=== PATIENT | male | born 1980 | race Caucasian/White ===

== ENCOUNTER 2018-07-21 07:25 | Emergency (ER) | payer MEDICAID ==
[~2018-07-21] VITALS: Ht 175.3 cm; Wt 77.3 kg
[2018-07-21] MEDS ORDERED: BACTDSB PO (07:52)
[2018-07-21] MEDS ORDERED: CEPH500 PO (07:52)
[2018-07-21] MEDS ORDERED: LOPE2 PO (07:52)
[2018-07-21] MEDS ORDERED: ONDA4 PO (07:53)
[2018-07-21] MEDS ORDERED: IBUP-2071 PO (07:53)
[2018-07-21] MEDS ORDERED: BISMUTH SUBSALICYLATE 524 MG/30 ML SUSPENSION UDCUP PO ONE (08:15)
[2018-07-21] MEDS ORDERED: SODIUM CHLORIDE 0.9% 1,000 ML IV ONE ×2 (08:15→10:00)
[2018-07-21 08:42] LABS: APPEARANCE,URINE CLEAR (CLEAR); BILIRUBIN,URINE NEGATIVE (NEGATIVE); GLUCOSE, URINE (UA) NEGATIVE (NEGATIVE); KETONES,URINE NEGATIVE (NEGATIVE); LEUKOCYTE ESTERASE ,URINE NEGATIVE (NEGATIVE); NITRATE,URINE NEGATIVE (NEGATIVE); OCCULT BLOOD,URINE NEGATIVE (NEGATIVE); PROTEIN,URINE NEGATIVE (NEGATIVE); UROBILINOGEN,URINE 0.2 mg/dL (<=1.0)
[2018-07-21 08:47] LABS: ANION GAP 6 mmol/L (8-16); CALCIUM, TOTAL 8.9 mg/dL (8.8-10.5); CARBON DIOXIDE 26 mmol/L (22-29); CHLORIDE 103 mmol/L (98-107); CREATININE 0.84 mg/dL (0.60-1.30); GLOMERULAR FILTR. RATE CALC > 60 mL/min (>60); GLUCOSE,RANDOM 104 mg/dL (70-110); POTASSIUM 4.6 mmol/L (3.5-5.1); SODIUM SERUM 135 mmol/L (136-145); UREA NITROGEN, BLOOD 11 mg/dL (7-18)
[2018-07-21 08:51] LABS: ALANINE AMINOTRANSFERASE 24 U/L (12-78); ALBUMIN 3.4 g/dL (3.4-5.0); ALKALINE PHOSPHATASE 75 U/L (46-116); ASPARTATE AMINOTRANSFERASE 10 U/L (15-37); BILIRUBIN,TOTAL 0.3 mg/dL (0.1-1.0); LIPASE 121 U/L (73-393); TOTAL PROTEIN, SERUM 7.9 g/dL (6.4-8.2)
[2018-07-21 08:55] LABS: BASOPHILS % (AUTO) 0.2 % (0.0-2.0); EOSINOPHILS % (AUTO) 2.4 % (1.0-6.0); HEMOGLOBIN 14.6 g/dL (13.5-17.5); LYMPHOCYTES # (AUTO) 0.8 K/uL (1.0-4.8); LYMPHOCYTES % (AUTO) 14.3 % (22.0-44.0); MEAN CORPUSCULAR HEMOGLOBIN 30.2 pg (26.0-34.0); MEAN CORPUSCULAR HGB CONC 33.3 G/dL (31.0-37.0); MEAN CORPUSCULAR VOLUME 91 fL (80-100); MONOCYTES # (AUTO) 0.4 K/uL (0.1-1.0); NEUTROPHILS # (AUTO) 4.2 K/uL (1.8-7.7); NEUTROPHILS % (AUTO) 76.1 % (40.0-70.0); PLATELET COUNT (AUTO) 288 K/uL (150-450); RED BLOOD CELL COUNT(AUTO) 4.86 MIL/uL (4.50-5.90)
[2018-07-21 09:01] LABS: INFLUENZA TYPE A NEGATIVE FOR TYPE A (NEGATIVE); INFLUENZA TYPE B NEGATIVE FOR TYPE B (NEGATIVE)
[2018-07-21 09:05] LABS: AMPHET/METH SCREEN,URINE NEGATIVE (NEGATIVE); BARBITURATE SCREEN, URINE NEGATIVE (NEGATIVE); BENZODIAZEPINES SCREEN,URINE NEGATIVE (NEGATIVE); CANNABINOID SCREEN,URINE NEGATIVE (NEGATIVE); COCAINE SCREEN,URINE NEGATIVE (NEGATIVE); METHADONE SCREEN, URINE NEGATIVE (NEGATIVE); OPIATE SCREEN,URINE NEGATIVE (NEGATIVE); PHENCYCLIDINE SCREEN,URINE NEGATIVE (NEGATIVE)
[2018-07-21 13:03] VITALS: BP 101/65
== END 2018-07-21 13:10 | disposition home or self-care (01) ==
LOC: EMS 07:29
DX: R10.84 Generalized abdominal pain (principal); R11.2 Nausea with vomiting, unspecified; R19.7 Diarrhea, unspecified; F11.10 Opioid abuse, uncomplicated; F15.10 Other stimulant abuse, uncomplicated; F17.210 Nicotine dependence, cigarettes, uncomplicated; Z79.899 Other long term (current) drug therapy
CPT/HCPCS: 36415; 74176; 76705; 80053; 80307; 81003; 83690; 85025; 87804; 96360; 96361; 99284; 99406; J7030

== ENCOUNTER 2019-04-24 14:09 | Emergency (ER) | payer MEDICAID ==
[~2019-04-24] VITALS: Ht 175.3 cm; Wt 68.2 kg
[~2019-04-24 14:09] MED LIST: BACTDSB PO; CEPH500 PO; IBUP-2071 PO; LOPE2 PO; ONDA4 PO
[2019-04-24] MEDS ORDERED: ONDANSETRON HCL 4 MG/2 ML VIAL IVP ONE (15:00)
[2019-04-24] MEDS ORDERED: SODIUM CHLORIDE 0.9% 1,000 ML IV ONE (15:00)
[2019-04-24 15:08] VITALS: BP 124/77
[2019-04-24 15:19] LABS: BASOPHILS % (AUTO) 0.5 % (0.0-2.0); EOSINOPHILS % (AUTO) 1.6 % (1.0-6.0); HEMATOCRIT 40.8 % (41-53); HEMOGLOBIN 13.3 g/dL (13.5-17.5); LYMPHOCYTES # (AUTO) 1.7 K/uL (1.0-4.8); LYMPHOCYTES % (AUTO) 28.3 % (22.0-44.0); MEAN CORPUSCULAR HGB CONC 32.7 G/dL (31.0-37.0); MEAN CORPUSCULAR VOLUME 89 fL (80-100); MONOCYTES # (AUTO) 0.2 K/uL (0.1-1.0); MONOCYTES % (AUTO) 3.5 % (2.0-9.0); NEUTROPHILS # (AUTO) 4.1 K/uL (1.8-7.7); NEUTROPHILS % (AUTO) 66.1 % (40.0-70.0); PLATELET COUNT (AUTO) 180 K/uL (150-450); RED CELL DISTRIBUTION WIDTH 14.5 % (11.5-14.5)
[2019-04-24 15:32] LABS: ANION GAP 9 mmol/L (8-16); CALCIUM, TOTAL 8.8 mg/dL (8.8-10.5); CARBON DIOXIDE 30 mmol/L (22-29); CHLORIDE 104 mmol/L (98-107); CREATININE 0.95 mg/dL (0.60-1.30); GLOMERULAR FILTR. RATE CALC > 60 mL/min (>60); GLUCOSE,RANDOM 76 mg/dL (70-110); POTASSIUM 4.2 mmol/L (3.5-5.1); SODIUM SERUM 143 mmol/L (136-145); UREA NITROGEN, BLOOD 8 mg/dL (7-18)
[2019-04-24 15:36] LABS: ALANINE AMINOTRANSFERASE 17 U/L (12-78); ALBUMIN 3.5 g/dL (3.4-5.0); ALKALINE PHOSPHATASE 66 U/L (46-116); ASPARTATE AMINOTRANSFERASE 15 U/L (15-37); BILIRUBIN,TOTAL 0.2 mg/dL (0.1-1.0); LIPASE 364 U/L (73-393)
[2019-04-24] MEDS ORDERED: MAG HYDROX/AL HYDROX/SIMETH ES 30 ML SUSPENSION UDCUP PO ONE (15:45)
[2019-04-24] MEDS ORDERED: FAMOTIDINE 10 MG/ML 2 ML VIAL IVP ONE (15:45)
[2019-04-24] MEDS ORDERED: KETOROLAC TROMETHAMINE 30 MG/ML VIAL IVP ONE (15:45)
== END 2019-04-24 16:35 | disposition left against medical advice (07) ==
LOC: EMS 14:10
DX: K80.20 Calculus of gallbladder without cholecystitis without obstruction (principal); F15.10 Other stimulant abuse, uncomplicated; F11.10 Opioid abuse, uncomplicated; F17.210 Nicotine dependence, cigarettes, uncomplicated; Z91.013 Allergy to seafood
CPT/HCPCS: 36415; 80053; 83690; 85025; 96374; 99283; G0480; J2405; J3490; J7030; J1885

== ENCOUNTER 2021-04-22 17:33 | Inpatient (IN) | payer MEDICAID ==
[~2021-04-22] VITALS: Ht 175.3 cm; Wt 74.0 kg
[2021-04-22] MEDS ORDERED: PNEUMOCOCCAL VACCINE POLYVALENT 0.5 ML VIAL [PPSV23] IM. ONE (18:30)
[2021-04-22 18:33] LABS: GLUCOMETER DEV NAME(LOC) POC.BV
[2021-04-22] MEDS ORDERED: ZOLPIDEM TARTRATE 10 MG TABLET PO PRN (18:45)
[2021-04-22] MEDS ORDERED: BUPR150SR PO (18:53)
[2021-04-22] MEDS ORDERED: ESCI-8 PO (18:53)
[2021-04-22] MEDS ORDERED: QUET300T2 PO (18:53)
[2021-04-23 01:13] VITALS: BP 104/62
[2021-04-23 07:25] LABS: BASOPHILS % (AUTO) 0.4 % (0.0-2.0); EOSINOPHILS % (AUTO) 1.4 % (1.0-6.0); HEMATOCRIT 42.8 % (41-53); LYMPHOCYTES # (AUTO) 1.6 K/uL (1.0-4.8); LYMPHOCYTES % (AUTO) 34.5 % (22.0-44.0); MEAN CORPUSCULAR HEMOGLOBIN 28.9 pg (26.0-34.0); MEAN CORPUSCULAR HGB CONC 32.8 G/dL (31.0-37.0); MEAN CORPUSCULAR VOLUME 88 fL (80-100); MONOCYTES # (AUTO) 0.3 K/uL (0.1-1.0); MONOCYTES % (AUTO) 5.4 % (2.0-9.0); NEUTROPHILS # (AUTO) 2.8 K/uL (1.8-7.7); NEUTROPHILS % (AUTO) 58.3 % (40.0-70.0); PLATELET COUNT (AUTO) 346 K/uL (150-450); RED BLOOD CELL COUNT(AUTO) 4.85 MIL/uL (4.50-5.90); RED CELL DISTRIBUTION WIDTH 14.4 % (11.5-14.5)
[2021-04-23 07:38] LABS: HEMOGLOBIN A1C 5.7 % (3.8-5.6)
[2021-04-23 07:44] LABS: ALANINE AMINOTRANSFERASE 31 U/L (12-78); ALBUMIN 3.2 g/dL (3.4-5.0); ALKALINE PHOSPHATASE 96 U/L (46-116); ANION GAP 10 mmol/L (8-16); ASPARTATE AMINOTRANSFERASE 13 U/L (15-37); BILIRUBIN,TOTAL 0.2 mg/dL (0.1-1.0); CALCIUM, TOTAL 8.7 mg/dL (8.8-10.5); CARBON DIOXIDE 29 mmol/L (22-29); CHLORIDE 100 mmol/L (98-107); CHOL/HDL RATIO 4.7 (4.2-7.3); CHOLESTEROL 145 mg/dL (131-200); CREATININE 0.81 mg/dL (0.60-1.30); FREE T4 (FREE THYROXINE) 0.98 ng/dL (0.76-1.46); GLOMERULAR FILTR. RATE CALC > 60 mL/min (>60); GLUCOSE,RANDOM 96 mg/dL (70-110); HDL CHOLESTEROL 31 mg/dL (40-60); LDL CHOL (CALC.) 97 mg/dL (0-130); POTASSIUM 4.3 mmol/L (3.5-5.1); SODIUM SERUM 139 mmol/L (136-145); THYROID STIMULATING HORMONE 0.61 uIU/mL (0.36-3.74); TOTAL PROTEIN, SERUM 7.4 g/dL (6.4-8.2); TRIGLYCERIDES 83 mg/dL (15-150); UREA NITROGEN, BLOOD 9 mg/dL (7-18)
[2021-04-23 08:34] VITALS: BP 101/61
[2021-04-23] MEDS: RisperiDONE 1 MG TABLET PO SCH ×2 (09:15→15:53)
[2021-04-23] MEDS: NICOTINE 21 MG/24 HOUR PATCH TD SCH (09:15)
[2021-04-23] MEDS ORDERED: ACETAMINOPHEN 325 MG TABLET PO PRN (09:45)
[2021-04-23] MEDS ORDERED: CloNIDine HCL 0.1 MG TABLET PO PRN (09:45)
[2021-04-23] MEDS ORDERED: PETROLATUM,WHITE 28 GM JELLY TP PRN (09:45)
[2021-04-23] MEDS ORDERED: BACITRACIN 28 GM OINTMENT TP PRN (09:45)
[2021-04-23] MEDS ORDERED: BENZOCAINE/MENTHOL LOZENGE PO PRN (09:45)
[2021-04-23] MEDS ORDERED: DOCUSATE SODIUM 100 MG CAPSULE PO PRN (09:45)
[2021-04-23] MEDS ORDERED: OMEPRAZOLE 20 MG CAPSULE PO PRN (09:45)
[2021-04-23] MEDS ORDERED: LOPERAMIDE HCL 2 MG CAPSULE PO PRN (09:45)
[2021-04-23] MEDS ORDERED: MAGNESIUM HYDROXIDE SUSPENSION 30 ML UDCUP PO PRN (09:45)
[2021-04-23] MEDS ORDERED: ALBUTEROL SULFATE HFA 90 MCG/PUFF 8 GM INHALER IH PRN (09:45)
[2021-04-23] MEDS ORDERED: ONDANSETRON HCL 4 MG TABLET PO PRN (09:45)
[2021-04-23] MEDS: LORazepam 2 MG TABLET PO PRN (15:53)
[2021-04-23] MEDS: IBUPROFEN 600 MG TABLET PO PRN (15:55)
[2021-04-23 16:27] VITALS: BP 109/61
[2021-04-24 01:11] VITALS: BP 105/62
[2021-04-24 08:46] VITALS: BP 120/62
[2021-04-24] MEDS: NICOTINE 21 MG/24 HOUR PATCH TD SCH (13:05)
[2021-04-24] MEDS: RisperiDONE 1 MG TABLET PO SCH ×2 (13:06→17:10)
[2021-04-24 16:20] VITALS: BP 110/69
[2021-04-25 00:50] VITALS: BP 117/72
[2021-04-25 08:16] VITALS: BP 93/51
[2021-04-25] MEDS: NICOTINE 21 MG/24 HOUR PATCH TD SCH (09:40)
[2021-04-25] MEDS: RisperiDONE 1 MG TABLET PO SCH ×2 (09:40→16:32)
[2021-04-25 16:25] VITALS: BP 102/67
[2021-04-25] MEDS: LORazepam 2 MG TABLET PO PRN (16:47)
[2021-04-26 05:41] VITALS: BP 122/80
[2021-04-26 08:15] VITALS: BP_SYST 118; BP_SYST 88; BP_DIAS 54; BP_DIAS 81
[2021-04-26] MEDS: CITALOPRAM HYDROBROMIDE 20 MG TABLET PO SCH (09:27)
[2021-04-26] MEDS: RisperiDONE 1 MG TABLET PO SCH ×2 (09:27→16:11)
[2021-04-26] MEDS: NICOTINE 21 MG/24 HOUR PATCH TD SCH (09:27)
[2021-04-26 16:18] VITALS: BP 98/62
[2021-04-27 00:29] VITALS: BP 101/65
[2021-04-27 08:13] VITALS: BP 111/59
[2021-04-27] MEDS: CITALOPRAM HYDROBROMIDE 20 MG TABLET PO SCH (09:46)
[2021-04-27] MEDS: RisperiDONE 1 MG TABLET PO SCH ×2 (09:46→16:08)
[2021-04-27] MEDS: NICOTINE 21 MG/24 HOUR PATCH TD SCH (09:46)
[2021-04-27 10:11] LABS: APPEARANCE,URINE CLEAR (CLEAR); BILIRUBIN,URINE NEGATIVE (NEGATIVE); GLUCOSE, URINE (UA) NEGATIVE (NEGATIVE); KETONES,URINE NEGATIVE (NEGATIVE); LEUKOCYTE ESTERASE ,URINE NEGATIVE (NEGATIVE); NITRATE,URINE NEGATIVE (NEGATIVE); OCCULT BLOOD,URINE NEGATIVE (NEGATIVE); PH,URINE 5.5 (5.0-8.0); PROTEIN,URINE NEGATIVE (NEGATIVE); UROBILINOGEN,URINE 0.2 mg/dL (<=1.0)
[2021-04-27 10:15] LABS: AMPHET/METH SCREEN,URINE NEGATIVE (NEGATIVE); BARBITURATE SCREEN, URINE NEGATIVE (NEGATIVE); BENZODIAZEPINES SCREEN,URINE NEGATIVE (NEGATIVE); CANNABINOID SCREEN,URINE NEGATIVE (NEGATIVE); COCAINE SCREEN,URINE NEGATIVE (NEGATIVE); METHADONE SCREEN, URINE NEGATIVE (NEGATIVE); OPIATE SCREEN,URINE NEGATIVE (NEGATIVE)
[2021-04-27 10:17] LABS: PHENCYCLIDINE SCREEN,URINE NEGATIVE (NEGATIVE)
[2021-04-27 16:19] VITALS: BP 112/72
[2021-04-27] MEDS: LORazepam 2 MG TABLET PO PRN (16:34)
[2021-04-28 01:08] VITALS: BP 115/78
[2021-04-28 08:36] VITALS: BP 96/53
[2021-04-28] MEDS: CITALOPRAM HYDROBROMIDE 20 MG TABLET PO SCH (10:57)
[2021-04-28] MEDS: RisperiDONE 1 MG TABLET PO SCH ×2 (10:57→15:55)
[2021-04-28] MEDS: NICOTINE 21 MG/24 HOUR PATCH TD SCH (10:57)
[2021-04-28] MEDS: LORazepam 2 MG TABLET PO PRN (15:55)
[2021-04-28] MEDS: IBUPROFEN 600 MG TABLET PO PRN (15:55)
[2021-04-28 16:17] VITALS: BP 101/66
[2021-04-29 01:08] VITALS: BP 106/62
[2021-04-29 09:08] VITALS: BP 109/66
[2021-04-29] MEDS: RisperiDONE 1 MG TABLET PO SCH ×2 (09:49→16:33)
[2021-04-29] MEDS: NICOTINE 21 MG/24 HOUR PATCH TD SCH (09:49)
[2021-04-29] MEDS: CITALOPRAM HYDROBROMIDE 20 MG TABLET PO SCH (09:49)
[2021-04-29 16:28] VITALS: BP 120/63
[2021-04-29] MEDS: LORazepam 2 MG TABLET PO PRN (16:41)
[2021-04-30 06:11] VITALS: BP 109/60
[2021-04-30 08:22] VITALS: BP 108/69
[2021-04-30] MEDS: RisperiDONE 1 MG TABLET PO SCH ×2 (10:02→17:03)
[2021-04-30] MEDS: CITALOPRAM HYDROBROMIDE 20 MG TABLET PO SCH (10:02)
[2021-04-30] MEDS: NICOTINE 21 MG/24 HOUR PATCH TD SCH (10:02)
[2021-04-30 16:16] VITALS: BP 98/69
[2021-05-01 00:05] VITALS: BP 100/65
[2021-05-01 08:20] VITALS: BP 139/97
[2021-05-01] MEDS: RisperiDONE 1 MG TABLET PO SCH ×2 (09:21→16:17)
[2021-05-01] MEDS: CITALOPRAM HYDROBROMIDE 20 MG TABLET PO SCH (09:21)
[2021-05-01] MEDS: NICOTINE 21 MG/24 HOUR PATCH TD SCH (09:22)
[2021-05-01] MEDS: LORazepam 2 MG TABLET PO PRN (16:17)
[2021-05-01 16:25] VITALS: BP 102/62
[2021-05-02 01:34] VITALS: BP 101/62
[2021-05-02 08:37] VITALS: BP 96/60
[2021-05-02] MEDS: RisperiDONE 1 MG TABLET PO SCH ×2 (09:33→16:46)
[2021-05-02] MEDS: NICOTINE 21 MG/24 HOUR PATCH TD SCH (09:33)
[2021-05-02] MEDS: CITALOPRAM HYDROBROMIDE 20 MG TABLET PO SCH (09:33)
[2021-05-02 16:23] VITALS: BP 102/63
[2021-05-02] MEDS: MAG HYDROX/AL HYDROX/SIMETH ES 30 ML SUSPENSION UDCUP PO PRN (16:47)
[2021-05-02] MEDS: HALOPERIDOL 5 MG TABLET PO PRN (20:21)
[2021-05-03] MEDS: MAG HYDROX/AL HYDROX/SIMETH ES 30 ML SUSPENSION UDCUP PO PRN (01:45)
[2021-05-03 08:21] VITALS: BP 143/86
[2021-05-03] MEDS: RisperiDONE 1 MG TABLET PO SCH ×2 (11:18→16:39)
[2021-05-03] MEDS: NICOTINE 21 MG/24 HOUR PATCH TD SCH (11:18)
[2021-05-03] MEDS: CITALOPRAM HYDROBROMIDE 20 MG TABLET PO SCH (11:18)
[2021-05-03 16:17] VITALS: BP 105/65
[2021-05-04 05:50] VITALS: BP 104/58
[2021-05-04] MEDS: CITALOPRAM HYDROBROMIDE 20 MG TABLET PO SCH (08:36)
[2021-05-04] MEDS: NICOTINE 21 MG/24 HOUR PATCH TD SCH (08:36)
[2021-05-04] MEDS: RisperiDONE 1 MG TABLET PO SCH ×2 (08:36→16:47)
[2021-05-04 16:29] VITALS: BP 100/62
[2021-05-05 01:00] VITALS: BP 103/61
[2021-05-05 08:28] VITALS: BP 101/62
[2021-05-05] MEDS: CITALOPRAM HYDROBROMIDE 20 MG TABLET PO SCH (09:13)
[2021-05-05] MEDS: NICOTINE 21 MG/24 HOUR PATCH TD SCH (09:13)
[2021-05-05] MEDS: RisperiDONE 1 MG TABLET PO SCH ×2 (09:13→16:39)
[2021-05-05 16:27] VITALS: BP 105/67
[2021-05-05] MEDS: HALOPERIDOL 5 MG TABLET PO PRN (19:48)
[2021-05-06] MEDS ORDERED: RISP1TAB89 PO (03:22)
[2021-05-06] MEDS ORDERED: CITA-144 PO (03:22)
[2021-05-06 06:09] VITALS: BP 112/66
== END 2021-05-06 15:23 | disposition home or self-care (01) | DRG 750 ==
LOC: B2S 18:36
PROVIDERS: ADMIT Psychiatry & Neurology Psychiatry; ATTEND Psychiatry & Neurology Psychiatry
DX: F25.9 Schizoaffective disorder, unspecified (principal); F22 Delusional disorders; R45.851 Suicidal ideations; F32.9 Major depressive disorder, single episode, unspecified; F41.9 Anxiety disorder, unspecified; Z20.822 Contact with and (suspected) exposure to COVID-19; G47.00 Insomnia, unspecified; K59.00 Constipation, unspecified; Z28.21 Immunization not carried out because of patient refusal; Z72.0 Tobacco use
CPT/HCPCS: 80053; 80061; 80307; 81003; 83036; 84439; 84443; 85025

== ENCOUNTER 2023-05-31 14:56 | Inpatient (IN) | payer MEDICAID ==
[~2023-05-31] VITALS: Ht 172.7 cm; Wt 94.9 kg
[~2023-05-31 14:56] MED LIST changes: -BACTDSB PO; -CEPH500 PO; +CITA-144 PO; -IBUP-2071 PO; -LOPE2 PO; -ONDA4 PO; +RISP1TAB89 PO
[2023-05-31 15:44] LABS: BASOPHILS % (AUTO) 0.3 % (0.0-2.0); EOSINOPHILS % (AUTO) 0 % (1.0-6.0); HEMATOCRIT 34.4 % (41-53); LYMPHOCYTES # (AUTO) 1.6 K/uL (1.0-4.8); LYMPHOCYTES % (AUTO) 15.9 % (22.0-44.0); MEAN CORPUSCULAR HEMOGLOBIN 28.9 pg (26.0-34.0); MEAN CORPUSCULAR VOLUME 83 fL (80-100); MONOCYTES # (AUTO) 0.9 K/uL (0.1-1.0); NEUTROPHILS # (AUTO) 7.3 K/uL (1.8-7.7); NEUTROPHILS % (AUTO) 74.8 % (40.0-70.0); PLATELET COUNT (AUTO) 286 K/uL (150-450); RED BLOOD CELL COUNT(AUTO) 4.16 MIL/uL (4.50-5.90); RED CELL DISTRIBUTION WIDTH 14.8 % (11.5-14.5); WHITE BLOOD COUNT (AUTO) 9.8 K/uL (4.5-11.0)
[2023-05-31 16:00] LABS: ALANINE AMINOTRANSFERASE 55 U/L (12-78); ALBUMIN 3.4 g/dL (3.4-5.0); ALKALINE PHOSPHATASE 80 U/L (46-116); ANION GAP 13 mmol/L (8-16); ASPARTATE AMINOTRANSFERASE 71 U/L (15-37); BILIRUBIN,TOTAL 1.4 mg/dL (0.1-1.0); CALCIUM, TOTAL 8.3 mg/dL (8.8-10.5); CARBON DIOXIDE 23 mmol/L (22-29); CHLORIDE 87 mmol/L (98-107); CREATININE 1.35 mg/dL (0.60-1.30); GLOMERULAR FILTR. RATE CALC 58 mL/min (>60); GLUCOSE,RANDOM 108 mg/dL (70-110); TOTAL PROTEIN, SERUM 6.9 g/dL (6.4-8.2); UREA NITROGEN, BLOOD 29 mg/dL (7-18)
[2023-05-31 16:00] LABS: ALCOHOL, URINE DRUG SCREEN NEGATIVE (NEGATIVE); AMPHET/METH SCREEN,URINE POSITIVE (NEGATIVE); BARBITURATE SCREEN, URINE NEGATIVE (NEGATIVE); BENZODIAZEPINES SCREEN,URINE NEGATIVE (NEGATIVE); CANNABINOID SCREEN,URINE NEGATIVE (NEGATIVE); COCAINE SCREEN,URINE NEGATIVE (NEGATIVE); METHADONE SCREEN, URINE NEGATIVE (NEGATIVE); OPIATE SCREEN,URINE NEGATIVE (NEGATIVE); PHENCYCLIDINE SCREEN,URINE NEGATIVE (NEGATIVE)
[2023-05-31 16:01] LABS: PH,URINE DRUG SCREEN 5.5 (5.0-8.0)
[2023-05-31 16:05] LABS: SODIUM SERUM 123 mmol/L (136-145)
[2023-05-31 16:06] LABS: POTASSIUM 2.8 mmol/L (3.5-5.1)
[2023-05-31] MEDS ORDERED: SODIUM CHLORIDE 0.9% 1,000 ML IV ONE ×3 (16:15→21:15)
[2023-05-31] MEDS ORDERED: POTASSIUM CHLORIDE 20 MEQ ER TABLET PO ONE ×2 (16:15→21:15)
[2023-05-31 16:40] LABS: ALCOHOL, BLOOD (SERUM) < 3 mg/dL (0-10)
[2023-05-31 16:54] LABS: COVID AG,FIA SOURCE NASAL SWAB
[2023-05-31] MEDS ORDERED: POTASSIUM CHLORIDE 20 MEQ ER TABLET PO PRN (17:00)
[2023-05-31] MEDS ORDERED: ACETAMINOPHEN 325 MG TABLET PO PRN (17:00)
[2023-05-31] MEDS ORDERED: ZOLPIDEM TARTRATE 5 MG TABLET PO PRN (17:00)
[2023-05-31] MEDS ORDERED: ONDANSETRON HCL 4 MG/2 ML VIAL IVP PRN (17:00)
[2023-05-31] MEDS ORDERED: MAGNESIUM HYDROXIDE SUSPENSION 30 ML UDCUP PO PRN (17:00)
[2023-05-31 17:04] LABS: SARS-COV2 (COVID) ANTIGEN,FIA Negative (Negative)
[2023-05-31 17:20] LABS: POTASSIUM,URINE RANDOM 30 mmol/L (12-75); SODIUM,URINE RANDOM 10 mmol/l (20-110)
[2023-05-31 17:26] LABS: APPEARANCE,URINE CLEAR (CLEAR); BILIRUBIN,URINE NEGATIVE (NEGATIVE); COLOR,URINE YELLOW (YELLOW); GLUCOSE, URINE (UA) NEGATIVE (NEGATIVE); KETONES,URINE 40-60 mg/dL (NEGATIVE); LEUKOCYTE ESTERASE ,URINE NEGATIVE (NEGATIVE); NITRATE,URINE NEGATIVE (NEGATIVE); OCCULT BLOOD,URINE NEGATIVE (NEGATIVE); PH,URINE 5.5 (5.0-8.0); SPECIFIC GRAVITIY, URINE 1.016 (1.003-1.030); UROBILINOGEN,URINE <=1.0 mg/dL (<=1.0)
[2023-05-31 17:28] LABS: PROTEIN,URINE NEGATIVE (NEGATIVE)
[2023-05-31 17:52] LABS: OSMOLALITY,URINE 484 mOsm/kg (50-1500)
[2023-05-31 18:14] LABS: THYROID STIMULATING HORMONE 0.71 uIU/mL (0.36-3.74)
[2023-05-31 18:29] LABS: URIC ACID 9.4 mg/dL (2.6-7.2)
[2023-05-31 18:40] LABS: MAGNESIUM 1.8 mg/dL (1.80-2.40); PHOSPHORUS 4.1 mg/dL (2.5-4.9)
[2023-05-31 18:56] VITALS: BP 127/54; PULSE 92; RESP 18; TEMP 98
[2023-05-31 20:17] VITALS: BP 108/68; PULSE 81; RESP 18; TEMP 97.9
[2023-05-31 21:04] LABS: CARBON DIOXIDE 25 mmol/L (22-29); CHLORIDE 90 mmol/L (98-107); CREATININE 1.04 mg/dL (0.60-1.30); GLUCOSE,RANDOM 127 mg/dL (70-110); UREA NITROGEN, BLOOD 23 mg/dL (7-18)
[2023-05-31 21:05] LABS: CALCIUM, TOTAL 8.3 mg/dL (8.8-10.5); GLOMERULAR FILTR. RATE CALC > 60 mL/min (>60)
[2023-05-31 21:07] LABS: ANION GAP 9 mmol/L (8-16); SODIUM SERUM 124 mmol/L (136-145)
[2023-05-31 21:09] LABS: POTASSIUM 2.9 mmol/L (3.5-5.1)
[2023-06-01 00:04] VITALS: BP 115/59; PULSE 97; RESP 19; TEMP 98.2
[2023-06-01 04:57] VITALS: BP 98/51; PULSE 64; RESP 18; TEMP 97.7
[2023-06-01 06:42] LABS: ANION GAP 9 mmol/L (8-16); CALCIUM, TOTAL 8.1 mg/dL (8.8-10.5); CARBON DIOXIDE 25 mmol/L (22-29); CHLORIDE 93 mmol/L (98-107); CREATININE 0.85 mg/dL (0.60-1.30); GLOMERULAR FILTR. RATE CALC > 60 mL/min (>60); GLUCOSE,RANDOM 97 mg/dL (70-110); SODIUM SERUM 127 mmol/L (136-145); UREA NITROGEN, BLOOD 16 mg/dL (7-18)
[2023-06-01 06:57] LABS: POTASSIUM 2.8 mmol/L (3.5-5.1)
[2023-06-01] MEDS: POTASSIUM CHL 10 MEQ/WATER 50 ML IV PRN ×4 (07:08→10:44)
[2023-06-01 08:05] VITALS: BP 104/57; PULSE 73; RESP 20; TEMP 97.6
[2023-06-01] MEDS: HEPARIN SODIUM,PORCINE 5,000 UNITS/ML VIAL SQ SCH ×3 (08:06→16:15)
[2023-06-01] MEDS: FAMOTIDINE 20 MG TABLET PO SCH (08:07)
[2023-06-01] MEDS ORDERED: POTASSIUM CHLORIDE 20 MEQ ER TABLET PO ONE (09:30)
[2023-06-01 11:51] VITALS: BP 129/55; PULSE 64; RESP 20; TEMP 98.1
[2023-06-01 13:36] LABS: ANION GAP 6 mmol/L (8-16); CALCIUM, TOTAL 8.4 mg/dL (8.8-10.5); CARBON DIOXIDE 28 mmol/L (22-29); CHLORIDE 96 mmol/L (98-107); CREATININE 0.85 mg/dL (0.60-1.30); GLOMERULAR FILTR. RATE CALC > 60 mL/min (>60); GLUCOSE,RANDOM 104 mg/dL (70-110); POTASSIUM 3.4 mmol/L (3.5-5.1); SODIUM SERUM 130 mmol/L (136-145); UREA NITROGEN, BLOOD 13 mg/dL (7-18)
[2023-06-01 16:20] VITALS: BP 98/68; PULSE 63; RESP 20; TEMP 97.5
[2023-06-01 19:40] VITALS: BP 103/62; PULSE 78; RESP 18; TEMP 98.3
[2023-06-02] VITALS (7 sets, daily range): BP systolic 100–122; BP diastolic 54–69; PULSE 60–88; RESP 18–20; TEMP 97.8–98.4
[2023-06-02] MEDS: HEPARIN SODIUM,PORCINE 5,000 UNITS/ML VIAL SQ SCH ×3 (01:02→17:20)
[2023-06-02 07:39] LABS: ANION GAP 4 mmol/L (8-16); CALCIUM, TOTAL 8.6 mg/dL (8.8-10.5); CARBON DIOXIDE 30 mmol/L (22-29); CHLORIDE 101 mmol/L (98-107); GLOMERULAR FILTR. RATE CALC > 60 mL/min (>60); GLUCOSE,RANDOM 104 mg/dL (70-110); POTASSIUM 4.1 mmol/L (3.5-5.1); SODIUM SERUM 135 mmol/L (136-145); UREA NITROGEN, BLOOD 10 mg/dL (7-18)
[2023-06-02] MEDS: FAMOTIDINE 20 MG TABLET PO SCH (08:56)
[2023-06-02] MEDS: MULTIVITAMINS, THERAPEUTIC TABLET PO SCH (08:56)
[2023-06-02] MEDS ORDERED: QUEtiapine FUMARATE 100 MG TABLET PO PRN (16:30)
[2023-06-02] MEDS ORDERED: GABA-1201 PO (17:19)
[2023-06-02] MEDS ORDERED: BUPR-49 PO (17:19)
[2023-06-02] MEDS ORDERED: CLON-501 PO ×2 (18:07→18:10)
[2023-06-02] MEDS ORDERED: BUPR1FIL3 SL (18:11)
[2023-06-02] MEDS: GABAPENTIN 400 MG CAPSULE PO SCH (21:12)
[2023-06-02] MEDS: QUEtiapine FUMARATE 100 MG TABLET PO SCH (21:14)
[2023-06-03] MEDS: HEPARIN SODIUM,PORCINE 5,000 UNITS/ML VIAL SQ SCH ×3 (00:42→18:11)
[2023-06-03 04:50] VITALS: BP 98/65; PULSE 69; RESP 20; TEMP 98
[2023-06-03] MEDS: GABAPENTIN 400 MG CAPSULE PO SCH ×3 (08:18→21:02)
[2023-06-03] MEDS: MULTIVITAMINS, THERAPEUTIC TABLET PO SCH (08:18)
[2023-06-03] MEDS: FAMOTIDINE 20 MG TABLET PO SCH (08:18)
[2023-06-03] MEDS ORDERED: BuPROPion HCL XL 150 MG ER TABLET PO SCH (09:00)
[2023-06-03 09:23] VITALS: BP 100/68; PULSE 94; RESP 18; TEMP 98.2
[2023-06-03] MEDS ORDERED: NICO-800 TD (16:40)
[2023-06-03] MEDS ORDERED: CLON0.1T2 PO (16:40)
[2023-06-03] MEDS ORDERED: FAMO20 PO (16:45)
[2023-06-03] MEDS ORDERED: QUET100T PO (16:46)
[2023-06-03] MEDS ORDERED: MULT-248 PO (16:46)
[2023-06-03 16:57] VITALS: BP 134/69; PULSE 81; RESP 18; TEMP 99.5
[2023-06-03 17:19] LABS: COVID AG,FIA SOURCE NASAL SWAB
[2023-06-03 17:52] LABS: SARS-COV2 (COVID) ANTIGEN,FIA Negative (Negative)
[2023-06-03 20:10] VITALS: BP 101/56; PULSE 69; RESP 18; TEMP 98.8
[2023-06-03] MEDS: QUEtiapine FUMARATE 100 MG TABLET PO SCH (21:02)
== END 2023-06-03 23:00 | DRG 426 ==
LOC: EMS 15:08 → 5S 16:55 → 6S 06-02 23:27
PROVIDERS: ADMIT Internal Medicine; ATTEND Internal Medicine
DX: E87.1 Hypo-osmolality and hyponatremia (principal); N17.9 Acute kidney failure, unspecified; F25.9 Schizoaffective disorder, unspecified; E87.6 Hypokalemia; F15.10 Other stimulant abuse, uncomplicated; F17.200 Nicotine dependence, unspecified, uncomplicated; E86.1 Hypovolemia; Z20.822 Contact with and (suspected) exposure to COVID-19; D64.9 Anemia, unspecified; E86.0 Dehydration; J44.9 Chronic obstructive pulmonary disease, unspecified; Z79.899 Other long term (current) drug therapy; Z91.013 Allergy to seafood; Z90.49 Acquired absence of other specified parts of digestive tract; Z71.6 Tobacco abuse counseling
CPT/HCPCS: 80048; 80053; 80307; 81003; 83735; 83930; 83935; 84100; 84132; 84133; 84300; 84443; 84550; 85025; 99285; G0378; G0480; J1644; J3480; J7030

== ENCOUNTER 2023-06-03 15:16 | Inpatient (IN) | payer MEDICAID ==
[~2023-06-03] VITALS: Ht 172.7 cm; Wt 93.3 kg
[~2023-06-03 15:16] MED LIST changes: +BUPR-49 PO; +BUPR1FIL3 SL; -CITA-144 PO; +CLON-501 PO; +GABA-1201 PO; -RISP1TAB89 PO
[2023-06-03] MEDS ORDERED: OLANZapine 5 MG RAPDIS TABLET PO PRN (16:00)
[2023-06-03] MEDS ORDERED: CLON0.1T2 PO (16:40)
[2023-06-03] MEDS ORDERED: NICO-800 TD (16:40)
[2023-06-03] MEDS ORDERED: FAMO20 PO (16:45)
[2023-06-03] MEDS ORDERED: QUET100T PO (16:46)
[2023-06-03] MEDS ORDERED: MULT-248 PO (16:46)
[2023-06-04 00:14] VITALS: BP 124/72; PULSE 81; RESP 18; TEMP 97.8; O2SAT 99
[2023-06-04 08:00] VITALS: BP 104/67; PULSE 64; RESP 18; TEMP 97.6
[2023-06-04 20:42] VITALS: RESP 18
[2023-06-04] MEDS ORDERED: ACETAMINOPHEN 325 MG TABLET PO PRN (21:15)
[2023-06-04] MEDS ORDERED: FAMOTIDINE 20 MG TABLET PO ONE (21:15)
[2023-06-04] MEDS ORDERED: IBUPROFEN 600 MG TABLET PO PRN (21:15)
[2023-06-04] MEDS: QUEtiapine FUMARATE 300 MG TABLET PO SCH (21:28)
[2023-06-04] MEDS: ZOLPIDEM TARTRATE 10 MG TABLET PO PRN (21:28)
[2023-06-05] MEDS: FAMOTIDINE 20 MG TABLET PO SCH (08:35)
[2023-06-05 10:20] VITALS: BP 121/75; PULSE 70; TEMP 97.2
[2023-06-05] MEDS: LORazepam 2 MG TABLET PO PRN (14:34)
[2023-06-05 20:43] VITALS: BP 120/70; PULSE 65; TEMP 97.6
[2023-06-05] MEDS: QUEtiapine FUMARATE 300 MG TABLET PO SCH (21:37)
[2023-06-05] MEDS: ZOLPIDEM TARTRATE 10 MG TABLET PO PRN (21:38)
[2023-06-06 09:27] VITALS: BP 109/61; PULSE 78; RESP 18; TEMP 97.7; O2SAT 98
[2023-06-06] MEDS: FAMOTIDINE 20 MG TABLET PO SCH (10:53)
[2023-06-06] MEDS: LORazepam 2 MG TABLET PO PRN (10:54)
[2023-06-06] MEDS ORDERED: LOPERAMIDE HCL 2 MG CAPSULE PO PRN (11:00)
[2023-06-06] MEDS ORDERED: TUBERCULIN, PURIFIED PROTEIN DERIVATIVE 5 TU/0.1 ML SYRINGE ID ONE (11:00)
[2023-06-06] MEDS ORDERED: MAGNESIUM HYDROXIDE SUSPENSION 30 ML UDCUP PO PRN (11:00)
[2023-06-06] MEDS ORDERED: GuaiFENesin/D-METHORPHAN [SUGAR-FREE] 200-20MG/10 ML SYRUP UDCUP PO PRN (11:00)
[2023-06-06] MEDS ORDERED: HydrOXYzine PAMOATE 50 MG CAPSULE PO PRN (11:00)
[2023-06-06] MEDS: GABAPENTIN 400 MG CAPSULE PO SCH ×2 (13:51→17:14)
[2023-06-06] MEDS: THIAMINE 100 MG TABLET PO SCH (17:14)
[2023-06-06] MEDS: QUEtiapine FUMARATE 300 MG TABLET PO SCH (20:32)
[2023-06-06] MEDS: MELATONIN 5 MG TABLET PO SCH (20:32)
[2023-06-06 20:50] VITALS: RESP 18
[2023-06-06] MEDS: ZOLPIDEM TARTRATE 10 MG TABLET PO PRN (21:08)
[2023-06-07 06:30] LABS: HEMOGLOBIN A1C 5.2 % (3.8-5.6)
[2023-06-07 06:43] LABS: CHOL/HDL RATIO 6.6 (4.2-7.3); FREE T4 (FREE THYROXINE) 1.04 ng/dL (0.76-1.46); THYROID STIMULATING HORMONE 1.99 uIU/mL (0.36-3.74)
[2023-06-07] MEDS: GABAPENTIN 400 MG CAPSULE PO SCH ×3 (08:31→18:00)
[2023-06-07] MEDS: MULTIVITAMINS WITH MINERALS, THERAPEUTIC TABLET PO SCH (08:32)
[2023-06-07] MEDS: FAMOTIDINE 20 MG TABLET PO SCH (08:32)
[2023-06-07] MEDS: THIAMINE 100 MG TABLET PO SCH ×2 (08:32→18:00)
[2023-06-07] MEDS: BuPROPion HCL XL 150 MG ER TABLET PO SCH (08:32)
[2023-06-07] MEDS: NALTREXONE HCL 50 MG TABLET PO SCH (08:32)
[2023-06-07] MEDS: FOLIC ACID 1 MG TABLET PO SCH (08:32)
[2023-06-07 09:46] VITALS: BP 94/57; PULSE 71; RESP 16; TEMP 97.1; O2SAT 98
[2023-06-07] MEDS: LORazepam 2 MG TABLET PO PRN ×2 (11:50→16:43)
[2023-06-07] MEDS: MAG HYDROX/ALUMINUM HYD/SIMETH ES 30 ML SUSPENSION UDCUP PO PRN (13:52)
[2023-06-07] MEDS ORDERED: QUEtiapine FUMARATE 100 MG TABLET PO ONE (16:15)
[2023-06-07] MEDS: MELATONIN 5 MG TABLET PO SCH (20:39)
[2023-06-07] MEDS: QUEtiapine FUMARATE 200 MG TABLET PO SCH (20:40)
[2023-06-07] MEDS: ZOLPIDEM TARTRATE 10 MG TABLET PO PRN (21:21)
[2023-06-07 21:45] VITALS: BP 101/67; PULSE 76; RESP 17; TEMP 97.7; O2SAT 98
[2023-06-08] VITALS (7 sets, daily range): BP systolic 104–133; BP diastolic 61–70; PULSE 81–95; RESP 18–19; TEMP 98.6–100.4; O2SAT 96–100
[2023-06-08] MEDS: PROMETHAZINE HCL 25 MG TABLET PO PRN ×2 (05:48→17:11)
[2023-06-08] MEDS: GABAPENTIN 400 MG CAPSULE PO SCH ×5 (08:24→16:57)
[2023-06-08] MEDS: MULTIVITAMINS WITH MINERALS, THERAPEUTIC TABLET PO SCH (08:24)
[2023-06-08] MEDS: THIAMINE 100 MG TABLET PO SCH ×3 (08:24→16:57)
[2023-06-08] MEDS: FAMOTIDINE 20 MG TABLET PO SCH (08:25)
[2023-06-08] MEDS: BuPROPion HCL XL 150 MG ER TABLET PO SCH (08:25)
[2023-06-08] MEDS: NALTREXONE HCL 50 MG TABLET PO SCH (08:25)
[2023-06-08] MEDS: FOLIC ACID 1 MG TABLET PO SCH (08:25)
[2023-06-08 09:44] LABS: COVID AG,FIA SOURCE NASAL SWAB
[2023-06-08] MEDS: MAG HYDROX/ALUMINUM HYD/SIMETH ES 30 ML SUSPENSION UDCUP PO PRN (09:58)
[2023-06-08] MEDS: OMEPRAZOLE 20 MG CAPSULE PO SCH ×2 (10:25→16:15)
[2023-06-08 10:26] LABS: SARS-COV2 (COVID) ANTIGEN,FIA Negative (Negative)
[2023-06-08] MEDS ORDERED: CloNIDine HCL 0.1 MG TABLET PO PRN (18:00)
[2023-06-08] MEDS ORDERED: QUEtiapine FUMARATE 100 MG TABLET PO PRN (18:00)
[2023-06-08] MEDS ORDERED: MAG HYDROX/ALUMINUM HYD/SIMETH ES 30 ML SUSPENSION UDCUP PO PRN (18:00)
[2023-06-08] MEDS ORDERED: HydrOXYzine PAMOATE 50 MG CAPSULE PO PRN (18:00)
[2023-06-08] MEDS ORDERED: IBUPROFEN 600 MG TABLET PO PRN (18:00)
[2023-06-08 18:06] LABS: AMPHET/METH SCREEN,URINE NEGATIVE (NEGATIVE); BARBITURATE SCREEN, URINE NEGATIVE (NEGATIVE); BENZODIAZEPINES SCREEN,URINE NEGATIVE (NEGATIVE); CANNABINOID SCREEN,URINE NEGATIVE (NEGATIVE); COCAINE SCREEN,URINE NEGATIVE (NEGATIVE); METHADONE SCREEN, URINE NEGATIVE (NEGATIVE); OPIATE SCREEN,URINE NEGATIVE (NEGATIVE); PHENCYCLIDINE SCREEN,URINE NEGATIVE (NEGATIVE)
[2023-06-08 18:34] LABS: ALCOHOL, URINE DRUG SCREEN NEGATIVE (NEGATIVE)
[2023-06-08] MEDS: MELATONIN 5 MG TABLET PO SCH (21:09)
[2023-06-08] MEDS: QUEtiapine FUMARATE 200 MG TABLET PO SCH (21:09)
[2023-06-08] MEDS: CloNIDine HCL 0.1 MG TABLET PO SCH (21:28)
[2023-06-09] VITALS (8 sets, daily range): BP systolic 100–116; BP diastolic 51–78; PULSE 62–85; RESP 18–19; TEMP 97.9–98.7; O2SAT 97–100
[2023-06-09] MEDS: CloNIDine HCL 0.1 MG TABLET PO SCH ×4 (05:52→21:19)
[2023-06-09] MEDS: BuPROPion HCL XL 150 MG ER TABLET PO SCH (09:07)
[2023-06-09] MEDS: THIAMINE 100 MG TABLET PO SCH ×2 (09:07→16:17)
[2023-06-09] MEDS: OMEPRAZOLE 20 MG CAPSULE PO SCH ×2 (09:07→16:16)
[2023-06-09] MEDS: FAMOTIDINE 20 MG TABLET PO SCH (09:07)
[2023-06-09] MEDS: MULTIVITAMINS WITH MINERALS, THERAPEUTIC TABLET PO SCH (09:07)
[2023-06-09] MEDS: GABAPENTIN 400 MG CAPSULE PO SCH ×3 (09:07→16:16)
[2023-06-09] MEDS: NALTREXONE HCL 50 MG TABLET PO SCH (09:08)
[2023-06-09] MEDS: FOLIC ACID 1 MG TABLET PO SCH (09:40)
[2023-06-09] MEDS: MELATONIN 5 MG TABLET PO SCH (20:50)
[2023-06-09] MEDS: QUEtiapine FUMARATE 200 MG TABLET PO SCH (20:50)
[2023-06-09] MEDS ORDERED: QUEtiapine FUMARATE 300 MG TABLET PO SCH (21:00)
[2023-06-10] MEDS: CloNIDine HCL 0.1 MG TABLET PO SCH ×4 (05:57→20:34)
[2023-06-10] MEDS: BuPROPion HCL XL 150 MG ER TABLET PO SCH (08:57)
[2023-06-10] MEDS: THIAMINE 100 MG TABLET PO SCH ×2 (08:57→16:58)
[2023-06-10] MEDS: FAMOTIDINE 20 MG TABLET PO SCH (08:57)
[2023-06-10] MEDS: NALTREXONE HCL 50 MG TABLET PO SCH (08:57)
[2023-06-10] MEDS: FOLIC ACID 1 MG TABLET PO SCH (08:57)
[2023-06-10] MEDS: GABAPENTIN 400 MG CAPSULE PO SCH ×3 (08:59→16:53)
[2023-06-10] MEDS: MULTIVITAMINS WITH MINERALS, THERAPEUTIC TABLET PO SCH (08:59)
[2023-06-10] MEDS: OMEPRAZOLE 20 MG CAPSULE PO SCH ×2 (08:59→16:53)
[2023-06-10 10:42] VITALS: BP 102/79; PULSE 78; RESP 18; TEMP 97.2; O2SAT 97
[2023-06-10 12:15] VITALS: BP 112/75; PULSE 78; RESP 18; TEMP 97.9; O2SAT 97
[2023-06-10 20:16] VITALS: BP 105/67; PULSE 77; RESP 19; TEMP 97.6; O2SAT 98
[2023-06-10] MEDS: MELATONIN 5 MG TABLET PO SCH (20:34)
[2023-06-10] MEDS: QUEtiapine FUMARATE 200 MG TABLET PO SCH (20:34)
[2023-06-10 20:55] VITALS: BP 105/67; PULSE 69; RESP 18; TEMP 97.6; O2SAT 98
[2023-06-11] MEDS: CloNIDine HCL 0.1 MG TABLET PO SCH ×4 (05:54→21:29)
[2023-06-11 09:00] VITALS: BP 116/58; PULSE 79; RESP 16; TEMP 98.4; O2SAT 98
[2023-06-11] MEDS: OMEPRAZOLE 20 MG CAPSULE PO SCH ×2 (09:34→16:24)
[2023-06-11] MEDS: FAMOTIDINE 20 MG TABLET PO SCH (09:34)
[2023-06-11] MEDS: MULTIVITAMINS WITH MINERALS, THERAPEUTIC TABLET PO SCH (09:34)
[2023-06-11] MEDS: NALTREXONE HCL 50 MG TABLET PO SCH (09:36)
[2023-06-11] MEDS: BuPROPion HCL XL 150 MG ER TABLET PO SCH (09:36)
[2023-06-11] MEDS: FOLIC ACID 1 MG TABLET PO SCH (09:36)
[2023-06-11] MEDS: GABAPENTIN 400 MG CAPSULE PO SCH ×3 (09:37→16:24)
[2023-06-11] MEDS: THIAMINE 100 MG TABLET PO SCH ×2 (09:37→16:24)
[2023-06-11] MEDS: MELATONIN 5 MG TABLET PO SCH (21:04)
[2023-06-11] MEDS: QUEtiapine FUMARATE 200 MG TABLET PO SCH (21:05)
[2023-06-11 21:51] VITALS: BP 98/70; PULSE 79; RESP 16; TEMP 97.6; TEMP 98.4; O2SAT 100
[2023-06-11 22:41] VITALS: BP 110/67; PULSE 78; RESP 18; TEMP 98.1
[2023-06-12] MEDS: CloNIDine HCL 0.1 MG TABLET PO SCH ×4 (06:00→22:00)
[2023-06-12 06:47] VITALS: BP 88/56; PULSE 72; RESP 18; TEMP 97.4; O2SAT 98
[2023-06-12 08:00] VITALS: BP 99/86; PULSE 80; RESP 18; TEMP 97.7; O2SAT 97
[2023-06-12] MEDS: THIAMINE 100 MG TABLET PO SCH ×2 (09:26→16:37)
[2023-06-12] MEDS: FOLIC ACID 1 MG TABLET PO SCH (09:27)
[2023-06-12] MEDS: NALTREXONE HCL 50 MG TABLET PO SCH (09:27)
[2023-06-12] MEDS: FAMOTIDINE 20 MG TABLET PO SCH (09:27)
[2023-06-12] MEDS: BuPROPion HCL XL 150 MG ER TABLET PO SCH (09:27)
[2023-06-12] MEDS: MULTIVITAMINS WITH MINERALS, THERAPEUTIC TABLET PO SCH (09:29)
[2023-06-12] MEDS: GABAPENTIN 400 MG CAPSULE PO SCH ×3 (09:29→16:37)
[2023-06-12] MEDS: OMEPRAZOLE 20 MG CAPSULE PO SCH ×2 (09:30→16:38)
[2023-06-12] MEDS ORDERED: OLANZapine 5 MG RAPDIS TABLET PO PRN (14:15)
[2023-06-12 16:35] VITALS: BP 123/73; PULSE 85
[2023-06-12] MEDS: QUEtiapine FUMARATE 200 MG TABLET PO SCH (20:37)
[2023-06-12] MEDS: OLANZapine 10 MG RAPDIS TABLET PO SCH (20:37)
[2023-06-12] MEDS: MELATONIN 5 MG TABLET PO SCH (20:37)
[2023-06-12] MEDS: MIRTAZAPINE 15 MG TABLET PO SCH (20:38)
[2023-06-12 22:16] VITALS: BP 98/57; PULSE 81; RESP 18; TEMP 97.3
[2023-06-12 22:17] VITALS: BP 98/57; PULSE 81; RESP 18; TEMP 97.3; O2SAT 98
[2023-06-13] MEDS: CloNIDine HCL 0.1 MG TABLET PO SCH ×4 (06:19→21:58)
[2023-06-13 09:00] VITALS: BP_SYST 88; BP_SYST 99; BP_DIAS 55; BP_DIAS 56; PULSE 79; PULSE 82; RESP 18; TEMP 98.3; TEMP 98.7
[2023-06-13] MEDS: GABAPENTIN 400 MG CAPSULE PO SCH ×3 (10:13→17:13)
[2023-06-13] MEDS: OMEPRAZOLE 20 MG CAPSULE PO SCH ×2 (10:13→17:13)
[2023-06-13] MEDS: THIAMINE 100 MG TABLET PO SCH ×2 (10:14→17:13)
[2023-06-13] MEDS: BuPROPion HCL XL 150 MG ER TABLET PO SCH (10:14)
[2023-06-13] MEDS: NALTREXONE HCL 50 MG TABLET PO SCH (10:15)
[2023-06-13] MEDS: FOLIC ACID 1 MG TABLET PO SCH (10:15)
[2023-06-13] MEDS: MULTIVITAMINS WITH MINERALS, THERAPEUTIC TABLET PO SCH (10:15)
[2023-06-13] MEDS: FAMOTIDINE 20 MG TABLET PO SCH (10:15)
[2023-06-13] MEDS: GABAPENTIN 300 MG CAPSULE PO PRN ×2 (13:03→13:05)
[2023-06-13] MEDS: MIRTAZAPINE 15 MG TABLET PO SCH (20:38)
[2023-06-13] MEDS: QUEtiapine FUMARATE 200 MG TABLET PO SCH (20:38)
[2023-06-13] MEDS: MELATONIN 5 MG TABLET PO SCH (20:38)
[2023-06-13] MEDS: OLANZapine 10 MG RAPDIS TABLET PO SCH (20:39)
[2023-06-13 21:56] VITALS: BP 101/58; PULSE 80; RESP 18; TEMP 98.1
[2023-06-14] MEDS: CloNIDine HCL 0.1 MG TABLET PO SCH ×4 (06:00→22:00)
[2023-06-14 06:13] VITALS: BP 105/59; PULSE 75; RESP 18; TEMP 97.9
[2023-06-14] MEDS: FAMOTIDINE 20 MG TABLET PO SCH (08:48)
[2023-06-14] MEDS: OMEPRAZOLE 20 MG CAPSULE PO SCH ×2 (08:48→17:01)
[2023-06-14] MEDS: BuPROPion HCL XL 150 MG ER TABLET PO SCH (08:49)
[2023-06-14] MEDS: FOLIC ACID 1 MG TABLET PO SCH (08:49)
[2023-06-14] MEDS: NALTREXONE HCL 50 MG TABLET PO SCH (08:49)
[2023-06-14] MEDS: GABAPENTIN 400 MG CAPSULE PO SCH ×3 (08:49→17:00)
[2023-06-14] MEDS: THIAMINE 100 MG TABLET PO SCH ×2 (08:49→17:01)
[2023-06-14] MEDS: MULTIVITAMINS WITH MINERALS, THERAPEUTIC TABLET PO SCH (08:50)
[2023-06-14] MEDS ORDERED: PALIPERIDONE PALMITATE 234 MG/1.5 ML SYRINGE IM ONE (09:00)
[2023-06-14 10:57] VITALS: BP 107/71; PULSE 87; RESP 18; TEMP 97.9; O2SAT 98
[2023-06-14 12:00] VITALS: BP 103/51; PULSE 59
[2023-06-14 17:00] VITALS: BP 117/71
[2023-06-14] MEDS: OLANZapine 10 MG RAPDIS TABLET PO SCH (20:24)
[2023-06-14] MEDS: QUEtiapine FUMARATE 200 MG TABLET PO SCH (20:24)
[2023-06-14] MEDS: MIRTAZAPINE 15 MG TABLET PO SCH (20:24)
[2023-06-14] MEDS: MELATONIN 5 MG TABLET PO SCH (20:24)
[2023-06-14 20:25] VITALS: BP 114/71; PULSE 95; TEMP 97.8; O2SAT 98
[2023-06-15] MEDS: CloNIDine HCL 0.1 MG TABLET PO SCH ×2 (06:00→12:16)
[2023-06-15] MEDS: FAMOTIDINE 20 MG TABLET PO SCH (09:15)
[2023-06-15] MEDS: BuPROPion HCL XL 150 MG ER TABLET PO SCH (09:15)
[2023-06-15] MEDS: GABAPENTIN 400 MG CAPSULE PO SCH ×2 (09:16→12:57)
[2023-06-15] MEDS: THIAMINE 100 MG TABLET PO SCH (09:16)
[2023-06-15] MEDS: MULTIVITAMINS WITH MINERALS, THERAPEUTIC TABLET PO SCH (09:16)
[2023-06-15] MEDS: OMEPRAZOLE 20 MG CAPSULE PO SCH (09:16)
[2023-06-15] MEDS: NALTREXONE HCL 50 MG TABLET PO SCH (09:16)
[2023-06-15] MEDS: FOLIC ACID 1 MG TABLET PO SCH (09:17)
[2023-06-15 10:27] VITALS: TEMP 97.4
[2023-06-15 12:14] VITALS: BP 111/69; PULSE 81; RESP 18; O2SAT 98
[2023-06-15] MEDS ORDERED: GABA-1201 PO (15:12)
[2023-06-15] MEDS ORDERED: QUET200T30 PO (15:12)
[2023-06-15] MEDS ORDERED: BUPR-49 PO (15:12)
[2023-06-15] MEDS ORDERED: MELA5TAB40 PO (15:12)
[2023-06-15] MEDS ORDERED: MIRT-149 PO (15:12)
[2023-06-15] MEDS ORDERED: NALT50TA PO (15:12)
[2023-06-15] MEDS ORDERED: OMEP20 PO (16:23)
[2023-06-15] MEDS ORDERED: ESZOPICLONE 3 MG TABLET PO SCH (21:00)
[2023-06-15] MEDS ORDERED: MIRTAZAPINE 30 MG TABLET PO SCH (21:00)
[2023-06-18] MEDS ORDERED: PALIPERIDONE PALMITATE 156 MG/ML SYRINGE IM ONE (09:00)
== END 2023-06-15 13:45 | disposition home or self-care (01) | DRG 750 ==
LOC: 3EX 23:15
PROVIDERS: ADMIT Psychiatry & Neurology Psychiatry; ATTEND Psychiatry & Neurology Psychiatry
DX: F25.9 Schizoaffective disorder, unspecified (principal); R45.851 Suicidal ideations; F41.9 Anxiety disorder, unspecified; F32.A Depression, unspecified; Z20.822 Contact with and (suspected) exposure to COVID-19; K21.9 Gastro-esophageal reflux disease without esophagitis; Z79.899 Other long term (current) drug therapy; Z91.013 Allergy to seafood; Z59.00 Homelessness unspecified
CPT/HCPCS: 80061; 80307; 83036; 84439; 84443; 86592; 87081; G0378; Q9967